=== PATIENT | female | born 1990 | race Two or more races ===

== ENCOUNTER 2019-01-14 11:28 | Emergency (ER) | payer MEDICAID, OTHER ==
[~2019-01-14] VITALS: Ht 160 cm; Wt 69.9 kg
[2019-01-14 12:01] VITALS: BP 97/61
[2019-01-14 12:54] LABS: Urine Bacteria NONE SEEN /hpf (None Seen); Urine Blood 3+ /uL (Negative); Urine Specific Gravity 1.018 (1.001-1.035); Urine WBC 355 /hpf (0 - 5)
== END 2019-01-14 13:21 | disposition home or self-care (01) ==
LOC: ER 11:32
DX: N39.0 Urinary tract infection, site not specified (principal); Z32.02 Encounter for pregnancy test, result negative
CPT/HCPCS: 81001; 81025

== ENCOUNTER 2022-06-10 15:33 | Emergency (ER) | payer MEDICAID, OTHER ==
[~2022-06-10] VITALS: Ht 162.6 cm; Wt 77.3 kg
[2022-06-10 17:00] VITALS: BP 140/90
[2022-06-10] MEDS ORDERED: KETOROLAC TROMETH 30 MG/ML 1ML VIAL IM ONE (17:45)
[2022-06-10] MEDS ORDERED: CYCL-839 PO (17:49)
== END 2022-06-10 17:59 | disposition home or self-care (01) ==
LOC: ER 15:33
DX: S66.811A Strain of other specified muscles, fascia and tendons at wrist and hand level, right hand, initial encounter (principal); W01.0XXA Fall on same level from slipping, tripping and stumbling without subsequent striking against object, initial encounter; Y93.89 Activity, other specified; Y92.89 Other specified places as the place of occurrence of the external cause; Y99.8 Other external cause status
CPT/HCPCS: 73080; 73090; 99284; J1885